=== PATIENT | male | born 1955 | race Caucasian/White ===

== ENCOUNTER 2016-11-12 11:02 | Emergency (ER) | payer MEDICAID ==
[~2016-11-12] VITALS: Ht 175.3 cm; Wt 97.0 kg
[~2016-11-12 11:02] MED LIST: CELE200C PO; TAMS0.4C4 PO; TAMS5CAP PO
[2016-11-12 11:04] VITALS: BP 153/82; PULSE 62; RESP 20; TEMP 97.7; O2SAT 97
--- NOTE | 2016-11-12 11:31 | RADRPT ---
EXAM DATE/TIME: 11/12/2016 11:06 [place] COMPARISON: CHEST PA & LAT, October 22, 2015, 9:06. INDICATIONS : Chest pain. MEDICAL HISTORY : None. SURGICAL HISTORY : None. ENCOUNTER: Initial ACUITY: 1 day PAIN SCORE: 2/10 LOCATION: Bilateral chest FINDINGS: A single view of the chest demonstrates the lungs to be symmetrically aerated without evidence of mas s, infiltrate or effusion. The cardiomediastinal contours are unremarkable. Osseous structures are intact. CONCLUSION: No acute disease. Manjit Brown Jr., MD on November 12, 2016 at 11:28 Board Certified Radiologist. This report was verified electronically.
--- NOTE | 2016-11-12 11:46 | PD ---
HPI Chief Complaint: Chest Pain Time Seen by Provider: 11:40 Travel History International Travel<30 days: No Contact w/Intl Traveler<30days: No Traveled to known affect area: No History of Present Illness HPI 61-year-old male presents to the emergency department for evaluation of intermittent left-sided chest pain that started this morning around 7:30 AM. States that he got up and made a 318 which. He states that he started with some left-sided chest pain that radiates to the left arm that lasted a few minutes. He states it was a dull ache. He states he also felt slight weakness in his left arm when he had the pain, but denies any other weakness or syncope. He states he felt dizzy when the pain came. He states this happened about 3 or 4 times. He has no pain at this time. He denies any weakness or syncope. No headache. No visual changes. Patient reports history of renal cell carcinoma, but is in remission. He states he gets a CT scan of his abdomen every year which has been cleaned. He also reports history of BPH and takes Flomax. He denies any other medical problems. He does report a normal stress test done by Dr. Rueda several years ago which she states was normal. Patient does report having increased stress after his mother and he is having issues with his brother over his mother's house. He denies any recent travel or surgery. No hemoptysis. No leg edema. No history DVT or PE. PFSH Past Medical History Cancer: Yes (L KIDNEY ) Diminished Hearing: No Hypertension: Yes Musculoskeletal: Yes (BACK PAIN ) Immunizations Current: Yes Past Surgical History Other Surgery: Yes ("LEFT KIDNEY SURGERY" IN '04) Social History Alcohol Use: Yes ([facility]) Tobacco Use: Yes (QUIT 09/2015) Substance Use: No Allergies-Medications (Allergen,Severity, Reaction): Coded Allergies: Sulfa (Verified Allergy, Severe, 11/12/16) Reported Meds & Prescriptions Reported Meds & Active Scripts Active Celebrex (Celecoxib) 200 Mg Cap 200 Mg PO BID PRN Flomax (Tamsulosin HCl) 0.4 Mg Cap 0.4 Mg PO HS Reported Tamsulosin (Tamsulosin HCl) 0.4 Mg Cap 0.4 Mg PO HS Review of Systems Except as stated in HPI: all other systems reviewed are Neg Physical Exam Narrative GENERAL: Well-developed well-nourished male patient, ambulatory. Afebrile. SKIN: Warm and dry. HEAD: Normocephalic. Atraumatic. EYES: No scleral icterus. No injection or drainage. NECK: Supple, trachea midline. No JVD or lymphadenopathy. CARDIOVASCULAR: Regular rate and rhythm without murmurs, gallops, or rubs. RESPIRATORY: Breath sounds equal bilaterally. No accessory muscle use. Lungs sounds are clear to auscultation. GASTROINTESTINAL: Abdomen soft, non-tender, nondistended. MUSCULOSKELETAL: No cyanosis, or edema. Bilateral upper and lower extremity strength 5/5. All extremities are neurovascularly intact. BACK: Nontender without obvious deformity. No CVA tenderness. NEUROLOGICAL: Awake and alert. Cranial nerves II through XII intact. Motor and sensory grossly within normal limits. Five out of 5 muscle strength in all muscle groups. Normal speech. Data Data Last Documented VS Vital Signs Date Time Temp Pulse Resp B/P Pulse Ox O2 Delivery O2 Flow Rate FiO2 11/12/16 12:11 98 Room Air 11/12/16 12:11 60 18 11/12/16 11:04 97.7 153/82 Orders Electrocardiogram (11/12/16 11:09) Complete Blood Count With Diff (11/12/16 11:09) Basic Metabolic Panel (Bmp) (11/12/16 11:09) Ckmb (Isoenzyme) Profile (11/12/16 11:09) Troponin I (11/12/16 11:09) Chest, Single Ap (11/12/16 11:09) Iv Access Insert/Monitor (11/12/16 11:09) Ecg Monitoring (11/12/16 11:09) Oxygen Administration (11/12/16 11:09) Oximetry (11/12/16 11:09) Magnesium (Mg) (11/12/16 11:40) CKMB (11/12/16 12:05) CKMB% (11/12/16 12:05) Troponin I (11/12/16 15:05) Labs Laboratory Tests Test 11/12/16 11/12/16 12:05 15:00 White Blood Count 5.2 TH/MM3 Red Blood Count 4.64 MIL/MM3 Hemoglobin 13.4 GM/DL Hematocrit 40.5 % Mean Corpuscular Volume 87.1 FL Mean Corpuscular Hemoglobin 28.9 PG Mean Corpuscular Hemoglobin 33.1 % Concent Red Cell Distribution Width 13.5 % Platelet Count 139 TH/MM3 Mean Platelet Volume 10.0 FL Neutrophils (%) (Auto) 52.9 % Lymphocytes (%) (Auto) 34.7 % Monocytes (%) (Auto) 7.7 % Eosinophils (%) (Auto) 2.0 % Basophils (%) (Auto) 2.7 % Neutrophils # (Auto) 2.7 TH/MM3 Lymphocytes # (Auto) 1.8 TH/MM3 Monocytes # (Auto) 0.4 TH/MM3 Eosinophils # (Auto) 0.1 TH/MM3 Basophils # (Auto) 0.1 TH/MM3 CBC Comment DIFF FINAL Differential Comment Sodium Level 140 MEQ/L Potassium Level 4.2 MEQ/L Chloride Level 107 MEQ/L Carbon Dioxide Level 26.7 MEQ/L Anion Gap 6 MEQ/L Blood Urea Nitrogen 18 MG/DL Creatinine 0.88 MG/DL Estimat Glomerular Filtration 88 ML/MIN Rate Random Glucose 101 MG/DL Calcium Level 8.8 MG/DL Magnesium Level 2.4 MG/DL Total Creatine Kinase 200 U/L Creatine Kinase MB 5.9 NG/ML Troponin I LESS THAN 0.02 LESS THAN 0.02 NG/ML NG/ML MDM Medical Decision Making Medical Screen Exam Complete: Yes Emergency Medical Condition: Yes Medical Record Reviewed: Yes Interpretation(s) Last Impressions Chest X-Ray 11/12/16 1109 Signed Impressions: Service Date/Time: Saturday, November 12, 2016 11:06 - CONCLUSION: No acute disease. Manjit Brown Jr., MD Differential Diagnosis Anxiety versus chest wall pain versus ACS versus electrolyte abnormality versus pneumonia Narrative Course 61-year-old male presents to the emergency department for several episodes of left-sided chest pain that rates the left arm that lasted for a few minutes. He does report some minimal associated weakness in the left upper arm. Patient denies any symptoms at this time. Physical exam is reassuring. EKG shows sinus bradycardia, heart rate 58, no acute ST changes. CBC, BMP, CK, troponin, magnesium, chest x-ray ordered and pending. CBC shows no acute abnormality. BMP shows no acute abnormality. CK is 200. Troponin is less than 0.02. Magnesium is 2.4. Chest x-ray shows no acute disease. I discussed the case my attending physician, Dr. Patel, who also examined patient. Patient does not want to be admitted to the [facility]. Repeat troponin will be completed at the 3 hour adamaris. Repeat troponin is less than 0.02. Patient is instructed to follow up with his primary care physician. Patient is to return for any acute, worsening of symptoms. He is agreeable. Diagnosis Primary Impression: Atypical chest pain Referrals: Primary Care Physician call for appointment Patient Instructions: Chest Pain (ED), General Instructions Additional Instructions: Follow-up with your primary care physician. Return to the emergency department for any acute worsening of symptoms. Med/Other Pt SpecificInfo: No Change to Meds Disposition: 01 DISCHARGE HOME Condition: Stable RajeshEmily Nov 12, 2016 11:46
[2016-11-12 12:11] VITALS: O2SAT 98
[2016-11-12 12:18] LABS: AUTOMATED NEUTROPHIL # 2.7 TH/MM3 (1.8-7.7); BASOPHIL # 0.1 TH/MM3 (0-0.2); BASOPHIL % 2.7 % (0.0-2.0); EOSINOPHIL # 0.1 TH/MM3 (0-0.4); HEMATOCRIT 40.5 % (39.0-51.0); HEMO FLAGS DIFF FINAL; LYMPH % 34.7 % (9.0-44.0); LYMPHOCYTE # 1.8 TH/MM3 (1.0-4.8); MEAN CELL VOLUME 87.1 FL (80.0-100.0); MEAN CORPUSCULAR HEMOGLOBIN 28.9 PG (27.0-34.0); MEAN CORPUSCULAR HGB CONC 33.1 % (32.0-36.0); MONO % 7.7 % (0.0-8.0); NEUT % 52.9 % (16.0-70.0); PLATELET COUNT 139 TH/MM3 (150-450); RED BLOOD COUNT 4.64 MIL/MM3 (4.50-5.90); RED CELL DISTRIBUTION WIDTH 13.5 % (11.6-17.2); WHITE BLOOD COUNT 5.2 TH/MM3 (4.0-11.0)
[2016-11-12 12:51] LABS: CREATINE KINASE 200 U/L (39-308)
[2016-11-12 12:52] LABS: ANION GAP 6 MEQ/L (5-15); BICARBONATE 26.7 MEQ/L (21.0-32.0); BLOOD UREA NITROGEN 18 MG/DL (7-18); CHLORIDE 107 MEQ/L (98-107); GLOMERULAR FILTRATION RATE 88 ML/MIN (>89); POTASSIUM 4.2 MEQ/L (3.5-5.1); SODIUM (NA) 140 MEQ/L (136-145)
[2016-11-12 13:03] LABS: CKMB 5.9 NG/ML (0.5-3.6)
--- NOTE | 2016-11-12 14:28 | PD ---
Data Data Last Documented VS Vital Signs Date Time Temp Pulse Resp B/P Pulse Ox O2 Delivery O2 Flow Rate FiO2 11/12/16 12:11 98 Room Air 11/12/16 12:11 60 18 11/12/16 11:04 97.7 153/82 Orders Electrocardiogram (11/12/16 11:09) Complete Blood Count With Diff (11/12/16 11:09) Basic Metabolic Panel (Bmp) (11/12/16 11:09) Ckmb (Isoenzyme) Profile (11/12/16 11:09) Troponin I (11/12/16 11:09) Chest, Single Ap (11/12/16 11:09) Iv Access Insert/Monitor (11/12/16 11:09) Ecg Monitoring (11/12/16 11:09) Oxygen Administration (11/12/16 11:09) Oximetry (11/12/16 11:09) Magnesium (Mg) (11/12/16 11:40) CKMB (11/12/16 12:05) CKMB% (11/12/16 12:05) Troponin I (11/12/16 15:05) Labs Laboratory Tests Test 11/12/16 12:05 White Blood Count 5.2 TH/MM3 Red Blood Count 4.64 MIL/MM3 Hemoglobin 13.4 GM/DL Hematocrit 40.5 % Mean Corpuscular Volume 87.1 FL Mean Corpuscular Hemoglobin 28.9 PG Mean Corpuscular Hemoglobin 33.1 % Concent Red Cell Distribution Width 13.5 % Platelet Count 139 TH/MM3 Mean Platelet Volume 10.0 FL Neutrophils (%) (Auto) 52.9 % Lymphocytes (%) (Auto) 34.7 % Monocytes (%) (Auto) 7.7 % Eosinophils (%) (Auto) 2.0 % Basophils (%) (Auto) 2.7 % Neutrophils # (Auto) 2.7 TH/MM3 Lymphocytes # (Auto) 1.8 TH/MM3 Monocytes # (Auto) 0.4 TH/MM3 Eosinophils # (Auto) 0.1 TH/MM3 Basophils # (Auto) 0.1 TH/MM3 CBC Comment DIFF FINAL Differential Comment Sodium Level 140 MEQ/L Potassium Level 4.2 MEQ/L Chloride Level 107 MEQ/L Carbon Dioxide Level 26.7 MEQ/L Anion Gap 6 MEQ/L Blood Urea Nitrogen 18 MG/DL Creatinine 0.88 MG/DL Estimat Glomerular Filtration 88 ML/MIN Rate Random Glucose 101 MG/DL Calcium Level 8.8 MG/DL Magnesium Level 2.4 MG/DL Total Creatine Kinase 200 U/L Creatine Kinase MB 5.9 NG/ML Troponin I LESS THAN 0.02 NG/ML MDM Supervised Visit with CASPER: Yes Narrative Course The history, exam, and medical decision-making in the associated midlevel provider note were completed with my assistance. I reviewed and agree with the findings presented. I attest that I had a [id number] encounter with the patient on the same day, and personally performed and documented my assessment and findings in the medical record. *My assessment and Findings: This is a 61-year-old male who presents to the emergency department with left-sided chest discomfort associated with some numbness in his left arm, lasting for 1 minute occurring several times this morning and then subsiding. He denies a history of hypertension, hyperlipidemia or diabetes but he does have a smoking history. EKG is normal sinus rhythm with no ST changes. Patient was offered observation for serial cardiac enzymes and risk stratification he declined. He wants to go home. Troponin was obtained 3 hours apart which were reassuring. Patient was advised to follow-up as soon as possible with his primary care physician, preferably within 2 days for a stress test. Ashwini Patel MD Nov 12, 2016 14:28
--- NOTE | 2016-11-12 21:39 | EKG ---
Date Performed: 11/12/2016 Time Performed: 11:13:36 PTAGE: 61 years EKG: SINUS BRADYCARDIA BORDERLINE ECG PREVIOUS TRACING : 10/02/2011 19.27 Compared to prior tracing no significant change DOCTOR: Michael Ayala Interpretating Date/Time 11/12/2016 21:38:51
[2016-11-24] MEDS ORDERED: MEDR4PAK PO (15:42)
[2016-11-27] MEDS ORDERED: FLUT50SP EACH NARE (16:29)
[2017-02-13] MEDS ORDERED: MICO1POW7 TOPICAL (15:18)
[2017-03-17] MEDS ORDERED: CETI10 PO (17:35)
== END 2016-11-12 16:46 | disposition home or self-care (01) ==
LOC: NEPE 11:02
DX: R07.89 Other chest pain (principal); I10 Essential (primary) hypertension; Z79.899 Other long term (current) drug therapy; Z85.528 Personal history of other malignant neoplasm of kidney; Z87.891 Personal history of nicotine dependence
CPT/HCPCS: 71010; 80048; 82550; 82552; 83735; 84484; 85025; 93005

== ENCOUNTER 2017-01-15 14:49 | Emergency (ER) | payer MEDICAID ==
[~2017-01-15] VITALS: Ht 175.3 cm; Wt 100.5 kg
[~2017-01-15 14:49] MED LIST changes: -CELE200C PO; +FLUT50SP EACH NARE; +MEDR4PAK PO
[2017-01-15 14:51] VITALS: BP 145/80; PULSE 70; RESP 15; TEMP 97.9; O2SAT 98
[2017-01-15] MEDS ORDERED: IBUPROFEN 800 MG TAB PO ONE (15:15)
[2017-01-15] MEDS ORDERED: SODIUM CHLORIDE 0.9% FLUSH 10 ML FLUSH IVF PRN (16:00)
[2017-01-15] MEDS ORDERED: TAMS5CAP PO (16:14)
[2017-01-15 16:24] LABS: BLOOD, URINE NEG (NEG); COMMENT (UR) CULT NOT INDICATED; CULTURE IF INDICATED CULT NOT INDICATED; GLUCOSE,URINE NEG (NEG); KETONE, URINE NEG (NEG); NITRITE,URINE NEG (NEG); SQUAMOUS EPITHELIAL CELL URINE <1 /hpf (0-5); URINE COLOR YELLOW (YELLW/STRAW)
[2017-01-15] MEDS ORDERED: AZITHROMYCIN 250 MG TAB PO ONE (17:00)
[2017-01-15] MEDS ORDERED: LIDOCAINE HCL 1% 50 ML VIAL XX ONE (17:00)
--- NOTE | 2017-01-15 17:08 | PD ---
HPI Chief Complaint: Complaint Time Seen by Provider: 16:00 Travel History International Travel<30 days: No Contact w/Intl Traveler<30days: No Traveled to known affect area: No History of Present Illness HPI Patient is a 61-year-old male presenting to the emergency evaluation of burning with urination and a tingly feeling on the tip of his penis. Patient states the symptoms have been ongoing for 7 days, he had unprotected sex last week. He denies any discharge, testicular pain. He further denies any fever, chills, nausea, vomiting, abdominal pain. PFSH Past Medical History Cancer: Yes (L KIDNEY ) Diminished Hearing: No Genitourinary: Yes (PROSTATE PROBLEMS) Hypertension: Yes Musculoskeletal: Yes (BACK PAIN ) Immunizations Current: Yes Tetanus Vaccination: > 5 Years Influenza Vaccination: No Past Surgical History Other Surgery: Yes ("LEFT KIDNEY SURGERY" IN '04) Social History Alcohol Use: Yes ([facility]) Tobacco Use: No (QUIT 09/2015) Substance Use: No Allergies-Medications (Allergen,Severity, Reaction): Coded Allergies: Sulfa (Verified Allergy, Severe, rash, 01/15/17) Reported Meds & Prescriptions Reported Meds & Active Scripts Active Reported Flomax (Tamsulosin HCl) 0.4 Mg Cap 0.4 Mg PO DAILY Review of Systems Except as stated in HPI: all other systems reviewed are Neg Genitourinary: Positive: Dysuria, No: Pelvic Pain, Flank Pain, Discharge Physical Exam Narrative GENERAL: Well-developed, well-nourished, alert male. SKIN: Warm and dry. HEAD: Normocephalic. EYES: No scleral icterus. No injection or drainage. NECK: Supple, trachea midline. No JVD or lymphadenopathy. CARDIOVASCULAR: Regular rate and rhythm without murmurs, gallops, or rubs. RESPIRATORY: Breath sounds equal bilaterally. No accessory muscle use. GASTROINTESTINAL: Abdomen soft, non-tender, nondistended. MUSCULOSKELETAL: No cyanosis, or edema. GENITOURINARY: Circumcised. Testes descended bilaterally without evidence of rotation. No lesions or erythema. No urethral discharge. BACK: Nontender without obvious deformity. No CVA tenderness. Data Data Last Documented VS Vital Signs Date Time Temp Pulse Resp B/P Pulse Ox O2 Delivery O2 Flow Rate FiO2 01/15/17 14:51 97.9 70 15 145/80 98 Orders Urinalysis - C+S If Indicated (01/15/17 15:54) Gc And Chlamydia Pcr (01/15/17 15:54) Sodium Chloride 0.9% Flush (Ns Flush) (01/15/17 16:00) Azithromycin (Zithromax) (01/15/17 17:00) Ceftriaxone Inj (Rocephin Inj) (01/15/17 17:00) Lidocaine 1% Inj (50 Ml) (Xylocaine 1% I (01/15/17 17:00) Labs Laboratory Tests Test 01/15/17 16:10 Urine Color YELLOW Urine Turbidity CLEAR Urine pH 6.0 Urine Specific [place] 1.018 Urine Protein NEG mg/dL Urine Glucose (UA) NEG mg/dL Urine Ketones NEG mg/dL Urine Occult Blood NEG Urine Nitrite NEG Urine Bilirubin NEG Urine Urobilinogen LESS THAN 2.0 MG/DL Urine Leukocyte Esterase NEG Urine RBC 1 /hpf Urine WBC LESS THAN 1 /hpf Urine Squamous Epithelial <1 /hpf Cells Microscopic Urinalysis Comment CULT NOT INDICATED MDM Medical Decision Making Medical Screen Exam Complete: Yes Emergency Medical Condition: Yes Interpretation(s) Vital Signs Date Time Temp Pulse Resp B/P Pulse Ox O2 Delivery O2 Flow Rate FiO2 01/15/17 14:51 97.9 70 15 145/80 98 Laboratory Tests Test 01/15/17 16:10 Urine Color YELLOW Urine Turbidity CLEAR Urine pH 6.0 Urine Specific Mobile 1.018 Urine Protein NEG mg/dL Urine Glucose (UA) NEG mg/dL Urine Ketones NEG mg/dL Urine Occult Blood NEG Urine Nitrite NEG Urine Bilirubin NEG Urine Urobilinogen LESS THAN 2.0 MG/DL Urine Leukocyte Esterase NEG Urine RBC 1 /hpf Urine WBC LESS THAN 1 /hpf Urine Squamous Epithelial <1 /hpf Cells Microscopic Urinalysis Comment CULT NOT INDICATED Differential Diagnosis UTI versus prostatitis versus STD versus other Narrative Course Patient is 61-year-old male presenting to the emergency department for evaluation of one week of burning with urination. Urinalysis, GC chlamydia ordered and sent. Urinalysis unremarkable. Patient will be treated empirically for STDs. He was encouraged to follow up with primary doctor. He was encouraged to practice safe sex. He was advised to return to emergency department for any new or worsening symptoms. Patient is stable for discharge. Diagnosis Primary Impression: Dysuria Referrals: Primary Care Physician Patient Instructions: Dysuria (ED), General Instructions, Sexually Transmitted Diseases (ED) Additional Instructions: Follow-up with your primary doctor Practices safe sex to avoid transmission of other sexually transmitted diseases Return to the emergency department for any new or worsening symptoms Med/Other Pt SpecificInfo: No Change to Meds Disposition: 01 DISCHARGE HOME Condition: Stable Clementina Rosado Jan 15, 2017 17:08
[2017-01-15 17:18] VITALS: BP 124/76; TEMP 97.8
[2017-01-15 18:33] LABS: CHLAMYDIA PCR NOT DETECTED (NOT DETECT); NEISSERIA PCR NOT DETECTED (NOT DETECT)
[2017-02-13] MEDS ORDERED: MICO1POW7 TOPICAL (15:18)
[2017-03-17] MEDS ORDERED: CETI10 PO (17:35)
== END 2017-01-15 17:18 | disposition home or self-care (01) ==
LOC: NEPD 14:49
DX: R30.0 Dysuria (principal)
CPT/HCPCS: 81001; 87491; 87591; 96372; 99283; J0696

== ENCOUNTER 2017-03-31 14:13 | Emergency (ER) | payer MEDICAID ==
[~2017-03-31] VITALS: Ht 175.3 cm; Wt 100.0 kg
[~2017-03-31 14:13] MED LIST changes: +CETI10 PO; -FLUT50SP EACH NARE; -MEDR4PAK PO; +MICO1POW7 TOPICAL; -TAMS0.4C4 PO
[2017-03-31 14:17] VITALS: BP 127/87; PULSE 87; RESP 15; TEMP 98.2; O2SAT 99
--- NOTE | 2017-03-31 14:23 | PD ---
Physical Exam Time Seen by Provider: 14:20 Narrative 61 y/o male here for evaluation of nausea/ vomiting, fatigue for one week. Denies diarrhea, pain. Vital signs reviewed. Seen at triage desk. Awaiting bed placement. Data Data Last Documented VS Vital Signs Date Time Temp Pulse Resp B/P Pulse Ox O2 Delivery O2 Flow Rate FiO2 03/31/17 14:17 98.2 87 15 127/87 99 MDM Medical Record Reviewed: Yes Supervised Visit with CASPER: Devon Carbajal Mar 31, 2017 14:22
[2017-03-31] MEDS ORDERED: SODIUM CHLOR 0.9% 1000 ML INJ 1,000 ML IV SCH (15:14)
[2017-03-31] MEDS ORDERED: MORPHINE SULFATE 4 MG/ML INJ IV PUSH ONE (15:15)
[2017-03-31] MEDS ORDERED: FAMOTIDINE 20 MG/2 ML VIAL IV PUSH ONE (15:15)
[2017-03-31] MEDS ORDERED: SODIUM CHLORIDE 0.9% FLUSH 10 ML FLUSH IV FLUSH PRN (15:15)
[2017-03-31] MEDS ORDERED: ONDANSETRON HCL 4 MG/2 ML VIAL IVP ONE (15:15)
--- NOTE | 2017-03-31 15:19 | PD ---
HPI Chief Complaint: GI Complaint Time Seen by Provider: 14:59 Travel History International Travel<30 days: No Contact w/Intl Traveler<30days: No Traveled to known affect area: No History of Present Illness HPI The patient is a 61-year-old male who presents to the emergency department for nausea, vomiting, body aches of 1 week's duration. The patient states his symptoms started on March 24 after he mowed the lawn in the heat. The patient took a sip of water from the shallow water well, which he has done all his life, and felt well until approximately 2 AM when he developed nausea and vomiting. The patient states he had an episode of vomiting that night, 90% water, and then felt better. However, when he awakened in the morning he had diffuse body aches with persistent nausea. The patient states the body aches and fatigue lasted for about 30 hours and then resolved. However, he has persistent nausea followed by vomiting when he eats. The patient will be, developed nausea and vomiting, and then will be hungry several hours later. He denies any acute abdominal pain and denies any known history of biliary colic, cholecystitis, or pancreatitis. He does drink appears intermittently. He denies any fever, chills, or sweats. He denies any diarrhea or constipation. He does have a history of renal cell carcinoma with subsequent surgery, did not require chemotherapy or radiation therapy. He is followed by Dr. Richardson and gets a yearly CAT scan. PFSH Past Medical History Cancer: Yes (L KIDNEY ) Diminished Hearing: No Genitourinary: Yes (PROSTATE PROBLEMS) Hypertension: Yes Musculoskeletal: Yes (BACK PAIN ) Immunizations Current: Yes Tetanus Vaccination: > 5 Years Influenza Vaccination: No Past Surgical History Other Surgery: Yes ("LEFT KIDNEY SURGERY" IN '04) Social History Alcohol Use: Yes (OCC) Tobacco Use: No (QUIT 09/2015) Substance Use: No (pt denies) Allergies-Medications (Allergen,Severity, Reaction): Coded Allergies: Sulfa (Verified Allergy, Severe, rash, 03/31/17) Reported Meds & Prescriptions Reported Meds & Active Scripts Active Reported Flomax (Tamsulosin HCl) 0.4 Mg Cap 0.4 Mg PO DAILY Review of Systems Except as stated in HPI: all other systems reviewed are Neg General / Constitutional: No: Fever, Chills Cardiovascular: No: Chest Pain or Discomfort Respiratory: No: Shortness of Breath Gastrointestinal: Positive: Nausea, Vomiting, No: Diarrhea, Abdominal Pain, Constipation, Changes in Bowel Habits, Loss of Appetite Musculoskeletal: Positive: Myalgias, Arthralgias Neurologic: No: Dizziness Physical Exam Narrative GENERAL: Awake, alert, pleasant 61-year-old male who appears his stated age and is in no acute respiratory distress. SKIN: Focused skin assessment warm/dry. HEAD: Atraumatic. Normocephalic. EYES: Pupils equal and round. No scleral icterus. No injection or drainage. ENT: No nasal bleeding or discharge. Mucous membranes pink and moist. NECK: Trachea midline. No JVD. CARDIOVASCULAR: Regular rate and rhythm. No murmur appreciated. RESPIRATORY: No accessory muscle use. Clear to auscultation. Breath sounds equal bilaterally. GASTROINTESTINAL: Abdomen soft, non-tender, nondistended. Well-healed midline incisional scar. No rebound tenderness. Negative Bhagat's. Negative McBurney' s. MUSCULOSKELETAL: No obvious deformities. No clubbing. No cyanosis. No edema. NEUROLOGICAL: Awake and alert. No obvious cranial nerve deficits. Motor grossly within normal limits. Normal speech. PSYCHIATRIC: Appropriate mood and affect; insight and judgment normal. Data Data Last Documented VS Vital Signs Date Time Temp Pulse Resp B/P Pulse Ox O2 Delivery O2 Flow Rate FiO2 03/31/17 14:37 16 03/31/17 14:17 98.2 87 127/87 99 Orders Complete Blood Count With Diff (03/31/17 15:14) Comprehensive Metabolic Panel (03/31/17 15:14) Lipase (03/31/17 15:14) Us Abdomen Gallbladder (03/31/17 ) Iv Access Insert/Monitor (03/31/17 15:14) Ecg Monitoring (03/31/17 15:14) Oximetry (03/31/17 15:14) Morphine Inj (Morphine Inj) (03/31/17 15:15) Ondansetron Inj (Zofran Inj) (03/31/17 15:15) Sodium Chlor 0.9% 1000 Ml Inj (Ns 1000 M (03/31/17 15:14) Sodium Chloride 0.9% Flush (Ns Flush) (03/31/17 15:15) Famotidine Inj (Pepcid Inj) (03/31/17 15:15) Morphine Inj (Morphine Inj) (03/31/17 15:30) Labs Laboratory Tests Test 03/31/17 15:20 White Blood Count 6.4 TH/MM3 Red Blood Count 4.94 MIL/MM3 Hemoglobin 14.4 GM/DL Hematocrit 42.2 % Mean Corpuscular Volume 85.4 FL Mean Corpuscular Hemoglobin 29.2 PG Mean Corpuscular Hemoglobin 34.2 % Concent Red Cell Distribution Width 13.7 % Platelet Count 157 TH/MM3 Mean Platelet Volume 10.0 FL Neutrophils (%) (Auto) 59.9 % Lymphocytes (%) (Auto) 30.0 % Monocytes (%) (Auto) 7.9 % Eosinophils (%) (Auto) 1.5 % Basophils (%) (Auto) 0.7 % Neutrophils # (Auto) 3.8 TH/MM3 Lymphocytes # (Auto) 1.9 TH/MM3 Monocytes # (Auto) 0.5 TH/MM3 Eosinophils # (Auto) 0.1 TH/MM3 Basophils # (Auto) 0.0 TH/MM3 CBC Comment DIFF FINAL Differential Comment Sodium Level 140 MEQ/L Potassium Level 3.8 MEQ/L Chloride Level 106 MEQ/L Carbon Dioxide Level 24.3 MEQ/L Anion Gap 10 MEQ/L Blood Urea Nitrogen 8 MG/DL Creatinine 0.82 MG/DL Estimat Glomerular Filtration 95 ML/MIN Rate Random Glucose 99 MG/DL Calcium Level 9.1 MG/DL Total Bilirubin 0.5 MG/DL Aspartate Amino Transf 26 U/L (AST/SGOT) Alanine Aminotransferase 30 U/L (ALT/SGPT) Alkaline Phosphatase 94 U/L Total Protein 7.4 GM/DL Albumin 3.8 GM/DL Lipase 99 U/L [facility] Medical Decision Making Medical Screen Exam Complete: Yes Emergency Medical Condition: Yes Medical Record Reviewed: Yes Interpretation(s) Laboratory Tests Test 03/31/17 15:20 White Blood Count 6.4 TH/MM3 Red Blood Count 4.94 MIL/MM3 Hemoglobin 14.4 GM/DL Hematocrit 42.2 % Mean Corpuscular Volume 85.4 FL Mean Corpuscular Hemoglobin 29.2 PG Mean Corpuscular Hemoglobin 34.2 % Concent Red Cell Distribution Width 13.7 % Platelet Count 157 TH/MM3 Mean Platelet Volume 10.0 FL Neutrophils (%) (Auto) 59.9 % Lymphocytes (%) (Auto) 30.0 % Monocytes (%) (Auto) 7.9 % Eosinophils (%) (Auto) 1.5 % Basophils (%) (Auto) 0.7 % Neutrophils # (Auto) 3.8 TH/MM3 Lymphocytes # (Auto) 1.9 TH/MM3 Monocytes # (Auto) 0.5 TH/MM3 Eosinophils # (Auto) 0.1 TH/MM3 Basophils # (Auto) 0.0 TH/MM3 CBC Comment DIFF FINAL Differential Comment Sodium Level 140 MEQ/L Potassium Level 3.8 MEQ/L Chloride Level 106 MEQ/L Carbon Dioxide Level 24.3 MEQ/L Anion Gap 10 MEQ/L Blood Urea Nitrogen 8 MG/DL Creatinine 0.82 MG/DL Estimat Glomerular Filtration 95 ML/MIN Rate Random Glucose 99 MG/DL Calcium Level 9.1 MG/DL Total Bilirubin 0.5 MG/DL Aspartate Amino Transf 26 U/L (AST/SGOT) Alanine Aminotransferase 30 U/L (ALT/SGPT) Alkaline Phosphatase 94 U/L Total Protein 7.4 GM/DL Albumin 3.8 GM/DL Lipase 99 U/L Differential Diagnosis Differential diagnosis includes gastritis, pancreatitis, peptic ulcer disease, biliary colic, choledocholithiasis, cholecystitis, food poisoning, dehydration, acute renal failure, electrolyte abnormality. Narrative Course IV was established, labs are drawn and sent, and the patient was placed on cardiac telemetry monitoring and continuous pulse oximetry monitoring. The patient was administered Zofran, morphine, Pepcid, and IV fluids. Ultrasound of the gallbladder was ordered. Patient's CBC and CMP are unremarkable. The patient's ultrasound is unremarkable. I do discussion with the patient regarding gastritis/peptic ulcer disease, he has been taking for Motrin per day , this may contribute to his symptoms. The patient will be placed on a proton pump inhibitor and Zofran as needed. He is advised to follow-up with his patient coordinator front desk, Dr. Taylor, if symptoms persist for outpatient endoscopy. Return sooner if symptoms worsen or progress. Diagnosis Primary Impression: Gastritis Qualified Code: K29.00 - Acute gastritis, presence of bleeding unspecified, unspecified gastritis type Additional Impression: Nausea & vomiting Qualified Code: R11.2 - Non-intractable vomiting with nausea, unspecified vomiting type Patient Instructions: General Instructions Additional Instructions: Please provide the patient a copy of his ultrasound results and lab results at discharge. Follow-up with her patient coordinator front desk if symptoms persist for outpatient endoscopy. Decrease Motrin use. Diet as tolerated. Med/Other Pt SpecificInfo: Prescription(s) given Scripts Ondansetron Odt (Zofran Odt)4 Mg Tab4 Mg SL Q6HR PRN (Nausea/Vomiting) #10 TAB Ref 0 Prov:Preston Griggs MD 03/31/17 Pantoprazole (Protonix)40 Mg Tab40 Mg PO DAILY #30 TAB Ref 0 Prov:Preston Griggs MD 03/31/17 Disposition: 01 DISCHARGE HOME Condition: Stable Preston Griggs MD Mar 31, 2017 15:19
[2017-03-31] MEDS ORDERED: MORPHINE SULFATE 8 MG/ML INJ IV PUSH ONE (15:30)
[2017-03-31 15:47] LABS: AUTOMATED NEUTROPHIL # 3.8 TH/MM3 (1.8-7.7); BASOPHIL % 0.7 % (0.0-2.0); EOSINOPHIL # 0.1 TH/MM3 (0-0.4); EOSINOPHIL % 1.5 % (0.0-4.0); HEMATOCRIT 42.2 % (39.0-51.0); HEMO FLAGS DIFF FINAL; LYMPHOCYTE # 1.9 TH/MM3 (1.0-4.8); MEAN CELL VOLUME 85.4 FL (80.0-100.0); MEAN CORPUSCULAR HEMOGLOBIN 29.2 PG (27.0-34.0); MEAN CORPUSCULAR HGB CONC 34.2 % (32.0-36.0); MONO % 7.9 % (0.0-8.0); NEUT % 59.9 % (16.0-70.0); PLATELET COUNT 157 TH/MM3 (150-450); RED BLOOD COUNT 4.94 MIL/MM3 (4.50-5.90); RED CELL DISTRIBUTION WIDTH 13.7 % (11.6-17.2); WHITE BLOOD COUNT 6.4 TH/MM3 (4.0-11.0)
[2017-03-31 16:02] LABS: ALT (GPT) 30 U/L (12-78); ANION GAP 10 MEQ/L (5-15); AST (GOT) 26 U/L (15-37); BICARBONATE 24.3 MEQ/L (21.0-32.0); BLOOD UREA NITROGEN 8 MG/DL (7-18); CHLORIDE 106 MEQ/L (98-107); GLOMERULAR FILTRATION RATE 95 ML/MIN (>89); POTASSIUM 3.8 MEQ/L (3.5-5.1); SODIUM (NA) 140 MEQ/L (136-145)
[2017-03-31 16:05] LABS: ALKALINE PHOSPHATASE 94 U/L (45-117); TOTAL BILIRUBIN ADULT 0.5 MG/DL (0.2-1.0)
--- NOTE | 2017-03-31 16:31 | RADRPT ---
EXAM DATE/TIME: 03/31/2017 15:23 [facility] COMPARISON: No previous studies available for comparison. INDICATIONS : Nausea and vomiting. MEDICAL HISTORY : Aneurysm, abdominal. Hypertension. Osteoarthritis. Sleep apnea. Hyperlipidemia. Renal disease. SURGICAL HISTORY : Back surgery. Left kidney surgery. ENCOUNTER: Initial ACUITY: 1 week PAIN SCORE: 0/10 LOCATION: Right upper quadrant MEASUREMENTS: LIVER: 17.1 cm length COMMON DUCT: 3 mm RIGHT KIDNEY: 10.9 x 4.8 x 5.6 cm FINDINGS: The gallbladder is intact without any evidence for gallstones, gallbladder wall thickening, or perich olecystic fluid. The visualized liver, head of the pancreas, and right kidney appear grossly intact for technique. CONCLUSION: Unremarkable study. Chicho Villanueva MD on March 31, 2017 at 16:28 Board Certified Radiologist. This report was verified electronically.
[2017-03-31] MEDS ORDERED: PROT40TA PO (16:44)
[2017-03-31] MEDS ORDERED: ZOFR4TAB3 SL (16:44)
== END 2017-03-31 17:07 | disposition home or self-care (01) ==
LOC: NEPD 14:13
DX: K29.00 Acute gastritis without bleeding (principal); Z85.528 Personal history of other malignant neoplasm of kidney
CPT/HCPCS: 76705; 80053; 83690; 85025; 96361; 96374; 96375; 99285; J2405; J7030

== ENCOUNTER 2017-04-27 13:30 | Emergency (ER) | payer MEDICAID ==
[~2017-04-27] VITALS: Ht 175.3 cm; Wt 96.0 kg
[~2017-04-27 13:30] MED LIST changes: -CETI10 PO; -MICO1POW7 TOPICAL; +PROT40TA PO; +ZOFR4TAB3 SL
[2017-04-27 13:31] VITALS: BP 127/72; PULSE 62; RESP 20; TEMP 98.3; O2SAT 98
--- NOTE | 2017-04-27 14:47 | PD ---
Physical Exam Date Seen by Provider: Apr 27, 2017 Time Seen by Provider: 13:40 Narrative 61 y/o male with pain erythema and swelling to left toe after clipping toenail 2 weeks ago. No fever or chills. Vital signs reviewed. Patient stable. Awaiting Bed placement. Data Data Last Documented VS Vital Signs Date Time Temp Pulse Resp B/P Pulse Ox O2 Delivery O2 Flow Rate FiO2 04/27/17 13:31 98.3 62 20 127/72 98 MDM Medical Record Reviewed: Yes Supervised Visit with CASPER: Yes Condition: Stable Fuentes Cote Apr 27, 2017 14:47
[2017-04-27] MEDS ORDERED: IBUP-232 PO (15:35)
[2017-04-27] MEDS ORDERED: CLIN1CAP5 PO (15:35)
--- NOTE | 2017-04-27 15:36 | PD ---
HPI Chief Complaint: Skin Problem Time Seen by Provider: 15:34 Travel History International Travel<30 days: No Contact w/Intl Traveler<30days: No Traveled to known affect area: No History of Present Illness HPI 61-year-old male presents to emergency Department with complaint of an infected ingrown toenail 3 days. Reports clipping the ingrown toenail 3 days ago with infection following. Denies fever, vomiting. Has been doing warm salt water soaks, using peroxide, and applying topical antibiotic ointment with no relief of symptoms. Symptoms worsened yesterday after swimming in the ocean. Symptoms are mild in severity. Allergies to sulfa. Denies being diabetic. Has no other medical complaints. No modifying factors or associated signs and symptoms. PFSH Past Medical History Cancer: Yes (L KIDNEY ) Diminished Hearing: No Genitourinary: Yes (PROSTATE PROBLEMS) Hypertension: Yes Musculoskeletal: Yes (BACK PAIN ) Immunizations Current: Yes ?: Not Past Surgical History Other Surgery: Yes ("LEFT KIDNEY SURGERY" IN ') Social History Alcohol Use: Yes (OCC) Tobacco Use: No (QUIT 09/2015) Substance Use: No (pt denies) Allergies-Medications (Allergen,Severity, Reaction): Coded Allergies: Sulfa (Verified Allergy, Severe, rash, 04/27/17) Reported Meds & Prescriptions Reported Meds & Active Scripts Active Ibuprofen 600 Mg Tab 600 Mg PO Q6H PRN Clindamycin (Clindamycin HCl) 150 Mg Cap 450 Mg PO Q6H 10 Days Zofran Odt (Ondansetron Odt) 4 Mg Tab 4 Mg SL Q6HR PRN Protonix (Pantoprazole Sodium) 40 Mg Tab 40 Mg PO DAILY Reported Flomax (Tamsulosin HCl) 0.4 Mg Cap 0.4 Mg PO DAILY Review of Systems Except as stated in HPI: all other systems reviewed are Neg Physical Exam Narrative GENERAL: Well-nourished, well-developed male patient, in no acute distress SKIN: Warm and dry. Lateral aspect of left great toe nail with erythema, edema , and purulent drainage noted. HEAD: Atraumatic. Normocephalic. EYES: Pupils equal and round. No scleral icterus. No injection or drainage. ENT: Mucosa pink and moist. Airway patent. NECK: Trachea midline. CARDIOVASCULAR: Regular rate. RESPIRATORY: No accessory muscle use. GASTROINTESTINAL: Rounded. MUSCULOSKELETAL: No obvious deformities. No clubbing. No cyanosis. No edema. NEUROLOGICAL: Awake and alert. Oriented 3. No obvious cranial nerve deficits. Motor grossly within normal limits. Normal speech. PSYCHIATRIC: Appropriate mood and affect; insight and judgment normal. Data Data Last Documented VS Vital Signs Date Time Temp Pulse Resp B/P Pulse Ox O2 Delivery O2 Flow Rate FiO2 04/27/17 13:31 98.3 62 20 127/72 98 MDM Medical Decision Making Medical Screen Exam Complete: Yes Emergency Medical Condition: Yes Medical Record Reviewed: Yes Differential Diagnosis Infected ingrown toenail, paronychia, watson Narrative Course 61-year-old male with an infected ingrown toenail of the left lateral great toe. I offered to numb the toe and clip the ingrown toenail, but that patient states he clipped the ingrown toenail 3 days ago causing this infection and declines the procedure at this time. Patient is afebrile and nontoxic- appearing. Denies fever, vomiting. Clindamycin and ibuprofen prescribed for home. Instructed patient to follow-up with podiatry. Instructed patient to follow up with primary care provider. Patient verbalizes understanding and agreement with treatment plan. Patient is medically cleared and stable for discharge. Discussed reasons to return to the emergency department. Patient agrees with treatment plan. The patients vital signs are stable and the patient is stable for outpatient follow-up and treatment. Patient discharged home, stable and in no acute distress. Diagnosis Primary Impression: Ingrowing toenail with infection Referrals: [facility] Primary Care Physician Patient Instructions: General Instructions, Ingrown Nail (ED) Departure Forms: Tests/Procedures, Work Release Enter return to work date: Apr 30, 2017 Additional Instructions: Ibuprofen or Tylenol as directed and as needed for pain and inflammation Antibiotics as prescribed and complete full course Warm salt water soaks for symptom management Follow-up with primary care provider Follow-up with podiatry Return to the emergency department immediately with worsening of symptoms Med/Other Pt SpecificInfo: Prescription(s) given Scripts Ibuprofen 600 Mg [id number] Mg PO Q6H PRN (PAIN) #30 TAB Ref 0 Prov:Naina Wharton 04/27/17 Clindamycin 150 Mg [id number] Mg PO Q6H 10 Days Ref 0 Prov:Naina Wharton 04/27/17 Disposition: 01 DISCHARGE HOME Condition: Stable Naina Wharton Apr 27, 2017 15:36
== END 2017-04-27 15:55 | disposition home or self-care (01) ==
LOC: NEPK 13:30
DX: L60.0 Ingrowing nail (principal); L03.032 Cellulitis of left toe
CPT/HCPCS: 99283